=== PATIENT | female | born 1980 | race Caucasian/White ===

== ENCOUNTER 2016-11-09 18:33 | Emergency (ER) | payer MEDICARE, MEDICAID ==
[2016-11-09] MEDS ORDERED: NORMAL SALINE 1000 ML 1,000 ML IV ONE (19:26)
[2016-11-09] MEDS ORDERED: MORPHINE SULFATE 10 MG/ML INJ IV ONE (19:28)
[2016-11-09] MEDS ORDERED: ONDANSETRON HCL INJ/PF 4 MG/2 ML SDV IV ONE (19:28)
--- NOTE | 2016-11-09 19:32 | ER Document Report ---
ED Medical Screen (RME) - General Chief Complaint: Abdominal Pain Stated Complaint: SIDE PAIN Notes: Patient's having pain in the right lower quadrant which began yesterday and was somewhat intermittent, but it's worse today and now constant in the right lower quadrant. She's been nauseated but not vomiting. No diarrhea. No UTI symptoms. No fever. Patient is extremely tender in the right lower quadrant, at McBurney's point, to palpation, even some guarding present. Has never had this pain before. Patient is adopted and mother says that when they got her at 8 years of age, she had these moles or in the suprapubic region of the abdomen and they don't know what it was due to. TRAVEL OUTSIDE OF THE [place] IN LAST 30 DAYS: No - Related Data Allergies/Adverse Reactions: surgical tape Allergy (Severe, Uncoded 11/09/16 18:38) rash Past Medical History - Past Medical History Cardiac Medical History: Denies: Hx Coronary Artery Disease, Hx Heart Attack, Hx Hypertension Pulmonary Medical History: Reports: Hx Asthma - inhalers, Hx Bronchitis - hx of Denies: Hx COPD, Hx Pneumonia Neurological Medical History: Denies: Hx Cerebrovascular Accident, Hx Seizures Renal/ Medical History: Denies: Hx Peritoneal Dialysis Musculoskeltal Medical History: Reports Hx Arthritis - rt shoulder Past Surgical History: Denies: Hx Pacemaker - Immunizations Hx Diphtheria, Pertussis, Tetanus Vaccination: Yes Physical Exam - Vital signs Vitals: Temp Pulse Resp BP Pulse Ox 98.3 F 77 18 118/72 100 11/09/16 18:37 11/09/16 18:37 11/09/16 18:37 11/09/16 18:37 11/09/16 18:37 Course - Vital Signs Vital signs: Temp Pulse Resp BP Pulse Ox 98.3 F 77 18 118/72 100 11/09/16 18:37 11/09/16 18:37 11/09/16 18:37 11/09/16 18:37 11/09/16 18:37
[2016-11-09 19:57] LABS: ABSOLUTE BASOPHILS # (AUTO) 0.1 10^3/uL (0.0-0.2); ABSOLUTE EOSINOPHILS # (AUTO) 0.2 10^3/uL (0.0-0.6); ABSOLUTE LYMPHOCYTES (AUTO) 1.4 10^3/uL (0.5-4.7); ABSOLUTE MONOCYTES (AUTO) 0.6 10^3/uL (0.1-1.4); ABSOLUTE NEUT (AUTO) 2.9 10^3/uL (1.7-8.2); BASOPHILS % (AUTO) 1.1 % (0-2); EOSINOPHILS % (AUTO) 4.4 % (0-6); HEMATOCRIT 33.4 % (36.0-47.0); HEMOGLOBIN 11.4 g/dL (12.0-15.5); HGB HCT DIFFERENCE 0.8; LYMPHOCYTES % (AUTO) 27.1 % (13-45); MEAN CORPUSCULAR HEMOGLOBIN 30.9 pg (27.0-33.4); MEAN CORPUSCULAR VOLUME 91 fl (80-97); MONOCYTES % (AUTO) 11.3 % (3-13); RED BLOOD COUNT 3.68 10^6/uL (3.72-5.28); RED CELL DISTRIBUTION WIDTH 14.7 % (11.5-14.0); SEGMENTED NEUTROPHILS % (AUTO) 56.1 % (42-78); WHITE BLOOD COUNT 5.1 10^3/uL (4.0-10.5)
[2016-11-09 20:08] LABS: APPEARANCE,URINE SLIGHTLY-CLOUDY; BILIRUBIN,URINE NEGATIVE (NEGATIVE); GLUCOSE, URINE NEGATIVE (NEGATIVE); KETONES,URINE NEGATIVE (NEGATIVE); LEUKOCYTE ESTERASE,URINE NEGATIVE (NEGATIVE); NITRITE,URINE NEGATIVE (NEGATIVE); PROTEIN,URINE NEGATIVE (NEGATIVE); URINE SPECIFIC GRAVITY 1.009; UROBILINOGEN,URINE NEGATIVE mg/dL (<2.0)
[2016-11-09 20:09] LABS: ALANINE AMINOTRANSFERASE 23 U/L (9-52); ALBUMIN 4.1 g/dL (3.5-5.0); ALKALINE PHOSPHATASE 82 U/L (38-126); ANION GAP 12 (5-19); ASPARTATE AMINO TRANSFERASE 16 U/L (14-36); BILIRUBIN,DIRECT 0.1 mg/dL (0.0-0.4); BILIRUBIN,TOTAL 0.3 mg/dL (0.2-1.3); BLOOD UREA NITROGEN 13 mg/dL (7-20); CALCIUM 9.2 mg/dL (8.4-10.2); CARBON DIOXIDE 24 mmol/L (22-30); CHLORIDE 107 mmol/L (98-107); CREATININE RESULT 0.73 mg/dL (0.52-1.25); GLUCOSE 91 mg/dL (75-110); LIPASE 37.2 U/L (23-300); SODIUM 143.1 mmol/L (137-145); TOTAL PROTEIN 7.1 g/dL (6.3-8.2)
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
[2016-11-09 22:51] VITALS: BP 112/72
[2016-11-09 23:13] LABS: CHLAM PCR NOT DETECTED (NOT DETECT)
[2016-11-09] MEDS ORDERED: FLUCONAZOLE 100 MG TABLET PO ONE (23:37)
== END 2016-11-10 00:10 | disposition home or self-care (01) ==
LOC: ER 18:33
DX: R10.2 Pelvic and perineal pain (principal); R10.9 Unspecified abdominal pain; R10.31 Right lower quadrant pain
CPT/HCPCS: 99284; 96361; 96374; 96375; 36415; 87086; 87210; 83690; 84703; 85025; 80053; 81001; 87491; 87591; 74177; J2270; J2405; J7030; A9270